=== PATIENT | male | born 1950 | race Caucasian/White ===

== ENCOUNTER → 2017-02-02 | Outpatient (CLI) | payer MEDICARE | END | disposition home or self-care (01) | LOC: GMAL 11:35 | PROVIDERS: ATTEND Family Medicine | DX: D51.3 Other dietary vitamin B12 deficiency anemia (principal); Z12.5 Encounter for screening for malignant neoplasm of prostate; E55.9 Vitamin D deficiency, unspecified | CPT/HCPCS: 82306; 82607; G0103 ==

== ENCOUNTER 2017-05-04 11:38 | Emergency (ER) | payer MEDICARE ==
[2017-05-04 11:50] VITALS: BP 131/83; TEMP 97.6; O2SAT 96
--- NOTE | 2017-05-04 11:56 | ED.PDOC ---
History of Present Illness - General Chief Complaint: Trauma Stated Complaint: fall Time Seen by Provider: 05/04/17 11:53 Source: patient Exam Limitations: no limitations - History of Present Illness Initial Comments: Patient presents with left hip pain for one hour. He stepped on a rock that slid and his left leg went backwards. He actually fell onto his right side but the pain is in the left hip joint. It mostly stops at rest but then get worse with movement, especially walking. Sharp in nature. No previous injuries to the area. No other complaints. Timing/Duration: 1 hour Severity: mild Improving Factors: rest Worsening Factors: movement Associated Symptoms: denies symptoms Allergies/Adverse Reactions: Allergies Mercury Allergy (Verified 05/04/17 11:50) Morphine Allergy (Verified 05/04/17 11:50) Home Medications: Ambulatory Orders Losartan Potassium & Hydrochlo [Losartan Potassium/Hydroc 100-25 mg] 0.5 tab PO DAILY 09/10/14 Citalopram Hydrobromide [Celexa] 10 mg PO BEDTIME #30 tab 09/11/14 Losartan Potassium & Hydrochlo [Hyzaar 100-25 mg] 1 tab PO DAILY #30 tab Metoprolol Succinate [Metoprolol Succinate ER] 50 mg PO DAILY #30 tab 09/11/14 Acetamin W/Cod #3 Tab [Tylenol #3 Tab] 1 ea PO Q6H PRN #12 tab 12/27/15 Cephalexin [Keflex] 500 mg PO BID #14 cap 12/27/15 Review of Systems - Review of Systems Constitutional: States: no symptoms reported EENTM: States: no symptoms reported Respiratory: States: no symptoms reported Cardiology: States: no symptoms reported Gastrointestinal/Abdominal: States: no symptoms reported Genitourinary: States: no symptoms reported Musculoskeletal: States: see HPI Skin: States: no symptoms reported Neurological: States: no symptoms reported Endocrine: States: no symptoms reported Hematologic/Lymphatic: States: no symptoms reported Past Medical History (General) - Patient Medical History Hx Seizures: No Hx Stroke: No Hx Dementia: No Hx Asthma: No Hx of COPD: No Hx Cardiac Disorders: No Hx Congestive Heart Failure: No Hx Pacemaker: No Hx Hypertension: Yes Hx Thyroid Disease: No Hx Diabetes: No Hx Gastroesophageal Reflux: Yes Hx Renal Disease: No Hx Cancer: No Hx of HIV: No Hx Hepatitis C: No Hx MRSA: No Surgical History: no surgical history - Vaccination History Hx Tetanus, Diphtheria Vaccination: No Hx Influenza Vaccination: No Hx Pneumococcal Vaccination: No - Social History Hx Tobacco Use: No Hx Chewing Tobacco Use: No Hx Alcohol Use: Yes - occasional Hx Substance Use: No Hx Substance Use Treatment: No Hx Depression: Yes Hx Physical Abuse: No Hx Emotional Abuse: No Hx Suspected Abuse: No - Activities of Daily Living Hospice Agency (if applicable):: None - Female History Patient : No Family Medical History - Family History Father Living Status: Still Living Hx Family Hypertension: Yes Hx Cardiac Disease: Yes - pacemaker Mother Living Status: Still Living Hx Family Hypertension: Yes Physical Exam - Physical Exam General Appearance: Alert Respiratory: lungs clear Cardiovascular/Chest: normal peripheral pulses, regular rate, rhythm Gastrointestinal/Abdominal: normal bowel sounds, non tender, soft Back Exam: normal inspection Extremity: other - Moderate pain with abduction of the left hip. Abduction of the right hip also elicits the left sided pain. Straight and cross leg raises are negative. Progress - Progress Progress: 05/04/17 12:56 Radiographs of the left hip were negative. Departure - Departure Clinical Impression: Sprain of left hip Disposition: Discharge to Home or Self Care Condition: Good Departure Forms: ED Discharge - Pt. Copy, Patient Portal Self Enrollment Diet: resume usual diet Activity: increase activity as tolerated Referrals: Percy Paulson III, MD [Primary Care Provider] - 1-2 Weeks Home Medications: Ambulatory Orders Losartan Potassium & Hydrochlo [Losartan Potassium/Hydroc 100-25 mg] 0.5 tab PO DAILY 09/10/14 Citalopram Hydrobromide [Celexa] 10 mg PO BEDTIME #30 tab 09/11/14 Losartan Potassium & Hydrochlo [Hyzaar 100-25 mg] 1 tab PO DAILY #30 tab Metoprolol Succinate [Metoprolol Succinate ER] 50 mg PO DAILY #30 tab 09/11/14 Acetamin W/Cod #3 Tab [Tylenol #3 Tab] 1 ea PO Q6H PRN #12 tab 12/27/15 Cephalexin [Keflex] 500 mg PO BID #14 cap 12/27/15 Additional Instructions: Ibuprofen and ice for pain control. Follow up with Dr. Navarro if pain has not resolved in two weeks.
--- NOTE | 2017-05-04 12:18 | RAD ---
EXAM DESCRIPTION: Hip,Left 2 Views CLINICAL HISTORY: Fall injury. Left hip pain FINDINGS/ IMPRESSION: No fracture of the proximal femur or pelvis Moderate osteoarthritis bilateral sacroiliac joints. Mild osteoarthritis of the hips Electronically signed by: Eric Blanco MD 05/04/2017 12:17 PM CDT
== END 2017-05-04 13:18 | disposition home or self-care (01) ==
LOC: ER 11:38
DX: S73.102A Unspecified sprain of left hip, initial encounter (principal); I10 Essential (primary) hypertension; Z88.6 Allergy status to analgesic agent; W01.0XXA Fall on same level from slipping, tripping and stumbling without subsequent striking against object, initial encounter; Y92.9 Unspecified place or not applicable

== ENCOUNTER 2017-05-18 15:09 | Emergency (ER) | payer MEDICARE ==
--- NOTE | 2017-05-18 15:15 | ED.PDOC ---
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 and fell forward on his hand and knees able to get up but had pain on his left hip which he had previously 2 weeks ago after a fall on his left hip.Able to get up but sharp pian got worse on his hip left and went home driving himself took vicodin and flexeril from previous prescription but pain unbearable having hard time getting up nad weight bearing left hip called up ems Occurred: this afternoon Severity: moderate Injuries/Pain Location: lower extremity - left hip Reason for Fall: tripped Loss of Consciousness: no loss of consciousness Improving Factors: rest Worsening Factors: movement Associated Symptoms (Fall): denies symptoms Allergies/Adverse Reactions: Allergies Mercury Allergy (Verified 05/04/17 11:50) Morphine Allergy (Verified 05/04/17 11:50) Home Medications: Ambulatory Orders Losartan Potassium & Hydrochlo [Losartan Potassium/Hydroc 100-25 mg] 0.5 tab PO DAILY 09/10/14 Citalopram Hydrobromide [Celexa] 10 mg PO BEDTIME #30 tab 09/11/14 Losartan Potassium & Hydrochlo [Hyzaar 100-25 mg] 1 tab PO DAILY #30 tab Metoprolol Succinate [Metoprolol Succinate ER] 50 mg PO DAILY #30 tab 09/11/14 Acetamin W/Cod #3 Tab [Tylenol #3 Tab] 1 ea PO Q6H PRN #12 tab 12/27/15 Cephalexin [Keflex] 500 mg PO BID #14 cap 12/27/15 Review of Systems - Review of Systems Constitutional: States: no symptoms reported Respiratory: States: no symptoms reported Cardiology: States: no symptoms reported Gastrointestinal/Abdominal: States: no symptoms reported Musculoskeletal: States: see HPI Neurological: States: no symptoms reported Past Medical History (General) - Patient Medical History Hx Seizures: No Hx Stroke: No Hx Dementia: No Hx Asthma: No Hx of COPD: No Hx Cardiac Disorders: No Hx Congestive Heart Failure: No Hx Pacemaker: No Hx Hypertension: Yes Hx Thyroid Disease: No Hx Diabetes: No Hx Gastroesophageal Reflux: Yes Hx Renal Disease: No Hx Cancer: No Hx of HIV: No Hx Hepatitis C: No Hx MRSA: No Surgical History: other - vasectomy - Vaccination History Hx Tetanus, Diphtheria Vaccination: No Hx Influenza Vaccination: No Hx Pneumococcal Vaccination: No - Social History Hx Tobacco Use: No Hx Chewing Tobacco Use: No Hx Alcohol Use: Yes - occasional Hx Substance Use: No Hx Substance Use Treatment: No Hx Depression: Yes Hx Physical Abuse: No Hx Emotional Abuse: No Hx Suspected Abuse: No - Activities of Daily Living Patient Lives Alone: No - family - Female History Patient : No Physical Exam - Physical Exam General Appearance: Alert, No apparent distress Head Injury: no evidence of injury Eye Exam: bilateral normal ENT Exam: hearing grossly normal, no evidence of ENT injury Peripheral Pulses: radial,right: 1+, radial,left: 1+, dorsalis pedis,right: 1+, dorsalis pedis,left: 1+ Cardiovascular/Respiratory: regular rate, rhythm, no M/R/G, normal peripheral pulses, normal breath sounds Gastrointestinal/Abdominal: non tender, soft, no organomegaly Back Exam: no CVA tenderness Extremity Exam: no pedal edema, pelvis stable, pain with movement - left hip, tenderness - left hip, unable to bear weight Neurologic: no motor/sensory deficits, alert, oriented x 3 Progress - Progress Progress: 05/18/17 15:39 Vital Signs - 8 hr 05/18/17 15:15 Temperature 98.5 F Pulse Rate [ 70 monitor] Respiratory 16 Rate Blood Pressure 148/101 [Right Arm] O2 Sat by Pulse 95 Oximetry - Results/Orders Results/Orders: Laboratory Tests 05/18/17 05/18/17 15:00 15:00 WBC 9.6 RBC 4.43 L Hgb 14.0 Hct 41.6 L MCV 94.0 MCH 31.6 H MCHC 33.7 RDW 13.2 Plt Count 216 MPV 7.9 Absolute Neuts (auto) 7.40 H Absolute Lymphs (auto) 1.30 Absolute Monos (auto) 0.80 Absolute Eos (auto) 0.10 Absolute Basos (auto) 0.00 Neutrophils % 77.0 Lymphocytes % 13.2 L Monocytes % 8.6 Eosinophils % 0.9 L Basophils % 0.3 Sodium 136 Potassium 4.0 Chloride 104 Carbon Dioxide 24 Anion Gap 12.0 BUN 21 H Creatinine 1.02 BUN/Creatinine Ratio 20.6 H Random Glucose 96 Serum Osmolality 274.8 L Calcium 8.8 Total Bilirubin 0.7 AST 26 ALT 29 Alkaline Phosphatase 36 L Serum Total Protein 6.3 L Albumin 4.1 Globulin 2.2 L Albumin/Globulin Ratio 1.9 - EKG/XRAY/CT XRAY: hip - left -degenerative changes no fracture CT Ordered: Yes - left hip-no fracture Departure - Departure Clinical Impression: Lipoma of buttock Fall Qualifiers: Encounter type: initial encounter Qualified Code(s): W19.XXXA - Unspecified fall, initial encounter Hip pain Qualifiers: Laterality: left Qualified Code(s): M25.552 - Pain in left hip Time of Disposition: 17:18 Disposition: Discharge to Home or Self Care Condition: Good Instructions: Help for Hip Pain Referrals: Percy Paulson III, MD [Primary Care Provider] - 1-2 Weeks Home Medications: Ambulatory Orders Losartan Potassium & Hydrochlo [Losartan Potassium/Hydroc 100-25 mg] 0.5 tab PO DAILY 09/10/14 Citalopram Hydrobromide [Celexa] 10 mg PO BEDTIME #30 tab 09/11/14 Losartan Potassium & Hydrochlo [Hyzaar 100-25 mg] 1 tab PO DAILY #30 tab Metoprolol Succinate [Metoprolol Succinate ER] 50 mg PO DAILY #30 tab 09/11/14 Acetamin W/Cod #3 Tab [Tylenol #3 Tab] 1 ea PO Q6H PRN #12 tab 12/27/15 Cephalexin [Keflex] 500 mg PO BID #14 cap 12/27/15 Additional Instructions: Ice pack to affected area 20 minutes 3 x a day during waking hours only until better; continue with your pain medication
[2017-05-18 15:21] VITALS: TEMP 98.5
--- NOTE | 2017-05-18 15:41 | RAD ---
EXAM DESCRIPTION: Hip,Left 2 Views CLINICAL HISTORY: pain/fall COMPARISON: May 04, 2017 TECHNIQUE: AP/frog leg lateral FINDINGS: No fracture of the hip or proximal femur is present. Mild osteophyte formation at the margin of the acetabular rim is present with mild sclerosis of the left SI joint and right SI joint consistent with osteoarthritis. IMPRESSION: No acute injury of the left hip with mild arthritic changes of the hip and SI joints. Electronically signed by: Eric Rivera MD 05/18/2017 3:40 PM CDT
--- NOTE | 2017-05-18 15:43 | RAD ---
EXAM DESCRIPTION: Pelvis,2 or More Views CLINICAL HISTORY: 66 years Male, pain/fall COMPARISON: December 29, 2012 FINDINGS: The bony pelvic ring is intact with mild degenerative changes involving the hips and SI joints. No destructive process or fracture or disruption of the pelvic bony ring seen. IMPRESSION: Negative examination. Electronically signed by: Eric Rivera MD 05/18/2017 3:41 PM CDT
[2017-05-18] MEDS ORDERED: fentaNYL CITRATE INJ 50 MCG/ML AMP IV ONE (16:46)
--- NOTE | 2017-05-18 17:08 | CT ---
EXAM DESCRIPTION: Lower Extremity CLINICAL HISTORY: 66 years Male pain left hip COMPARISON: None. TECHNIQUE: Contiguous axial CT images obtained through the left hip without IV contrast. Reformatted images obtained. This exam was performed according to our department optimization program which includes automated exposure control, adjustment of the mA and/or kv according to patient size and/or use of iterative reconstruction technique. FINDINGS: Mild osteophytosis along the left acetabulum. The proximal left femur appears intact. Enthesophytes are present along the inferior pubic ramus. No acute fracture is noted. Degenerative changes are present at the left SI joint. Incidental note made of diverticulosis. Lipoma in the gluteal muscles over the lateral aspect of the hip. IMPRESSION: No acute fracture Electronically signed by: Geeta Decker 05/18/2017 5:06 PM CDT
[2017-05-18 17:41] VITALS: BP 148/88; O2SAT 98
== END 2017-05-18 17:39 | disposition home or self-care (01) ==
LOC: ER 15:09
DX: D17.39 Benign lipomatous neoplasm of skin and subcutaneous tissue of other sites (principal); K21.9 Gastro-esophageal reflux disease without esophagitis; Z88.0 Allergy status to penicillin; Z88.8 Allergy status to other drugs, medicaments and biological substances; W01.0XXA Fall on same level from slipping, tripping and stumbling without subsequent striking against object, initial encounter; Y92.69 Other specified industrial and construction area as the place of occurrence of the external cause
CPT/HCPCS: 36415; 72190; 73502; 73700; 80053; 85025; J3010

== ENCOUNTER → 2017-08-31 | Outpatient (CLI) | payer MEDICARE ==
--- NOTE | 2017-08-31 12:58 | MRI ---
EXAM DESCRIPTION: MRI of the lumbar spine CLINICAL HISTORY: LUMBAR RADICULOPATHY COMPARISON: None. TECHNIQUE: Multiplanar multisequence magnetic resonance imaging of the lumbar spine was performed without contrast. FINDINGS: GENERAL Designated L5-S1 disc level seen on axial T2 series image 3 Lumbar lordosis is maintained. Conus medullaris is normal in thickness and signal intensity terminating at the L1 level. Bone marrow signal is within normal limits. No acute fracture is demonstrated. [id number] bilateral degenerative sacroiliitis is partially seen. Visualized retroperitoneal structures are unremarkable. Overall appearance of the spinal canal indicates a degree of congenital narrowing from foreshortened pedicles. Multilevel bridging syndesmophytes of the visualized lumbar spine can be seen with psoriatic arthritis or diffuse idiopathic spinal hyperostosis. L1-2 Usual degenerative disc height loss. No significant findings. L2-3 Mild degenerative disc signal. Circumferential bulging disc extending posteriorly less than 0.2 cm. AP diameter thecal sac measures 0.8 cm. This contributes to bilateral lateral recess effacement with contact and possible impingement traversing bilateral L3 nerve roots. No significant foraminal stenosis is demonstrated. L3-4 Circumferential bulging of the disc extends up to 0.4 cm into the central spinal canal. Ligamentum flavum buckling/redundancy is present. This narrows AP diameter thecal sac to 0.4 cm. The nerve roots are clumped and there is complete effacement of CSF signal. Nerve roots are ectatic distally to this area of high-grade stenosis. There is mild bilateral facet arthritis. No significant foraminal stenosis is seen. L4-5 Circumferential bulging of the disc is noted to extend up to 0.3 cm into the central spinal canal. Ligamentum flavum buckling/redundancy is present. There is mild to moderate bilateral facet joint osteoarthritis /hypertrophy. AP diameter thecal sac narrows to approximately 0.5 cm. There is effacement of the bilateral lateral recesses with possible impingement traversing bilateral L5 nerve roots. Mild effacement right neural foraminal fat from facet hypertrophy. L5-S1 Borderline mild bilateral facet arthritis. IMPRESSION: Severe central spinal canal stenosis L3-L4 from combination congenital narrowing, circumferential bulging disc, ligamentum flavum buckling and facet hypertrophy. Advanced central spinal canal narrowing L4-5 also multifactorial. Advanced bilateral lateral recess effacement multifactorial L2-L3 and L4-5. Additional less specific findings described above. Electronically signed by: Adan Keller MD 08/31/2017 12:57 PM [facility]
== END | disposition home or self-care (01) ==
LOC: MRI 09:54
PROVIDERS: ATTEND Family Medicine
DX: M54.16 Radiculopathy, lumbar region (principal)

== ENCOUNTER → 2018-05-19 | Outpatient (CLI) | payer MEDICARE | LOC: GMAL 15:02 | PROVIDERS: ATTEND Family Medicine | DX: Z12.5 Encounter for screening for malignant neoplasm of prostate (principal) ==

== ENCOUNTER 2018-11-14 05:41 | Day surgery (SDC) | payer MEDICARE ==
[2018-11-14] MEDS ORDERED: TROP 1%/CYCLOPEN 1%/PHENYL 2% DROPS OPHTH ONE (05:42)
[2018-11-14] MEDS ORDERED: MIDAZOLAM INJ 2 MG/2 ML VIAL ONE (06:58)
[2018-11-14] MEDS ORDERED: PROPARACAINE 0.5% OPHTH SOL 15 ML BTTL LEFT_EYE ONE (08:05)
[2018-11-14] MEDS ORDERED: DEXAMETHASONE 0.1% OPHTH SOL 1 DROP LEFT_EYE ONE ×2 (08:13→08:28)
[2018-11-14] MEDS ORDERED: BRIMONIDINE 0.2% OPHTH DROPS LEFT_EYE ONE ×2 (08:14→08:28)
[2018-11-14] MEDS ORDERED: TOBRAMYCIN SULF 0.3 % OPHT SOL 1 DROP LEFT_EYE ONE ×2 (08:14→08:28)
[2018-11-14] MEDS ORDERED: MOXIFLOXACIN HCL (OPHTH) 1 DROP DROPS LEFT_EYE ONE ×2 (08:16→08:26)
[2018-11-14] MEDS ORDERED: LIDOCAINE 1% 2 ML VIAL INJ ONE (08:16)
== END 2018-11-14 09:03 | disposition home or self-care (01) ==
LOC: AMB 05:41
PROVIDERS: ATTEND Ophthalmology
DX: H25.12 Age-related nuclear cataract, left eye (principal); I10 Essential (primary) hypertension; E66.9 Obesity, unspecified; Z88.5 Allergy status to narcotic agent; Z79.899 Other long term (current) drug therapy
CPT/HCPCS: 00142; 66984; J2250

== ENCOUNTER 2018-11-28 05:24 | Day surgery (SDC) | payer MEDICARE ==
[2018-11-28] MEDS ORDERED: PROPARACAINE 0.5% OPHTH SOL 15 ML BTTL ONE (05:43)
[2018-11-28] MEDS ORDERED: TROP 1%/CYCLOPEN 1%/PHENYL 2% DROPS ONE (05:43)
[2018-11-28] MEDS ORDERED: MOXIFLOXACIN HCL (OPHTH) 1 DROP DROPS ONE (05:43)
[2018-11-28] MEDS ORDERED: MIDAZOLAM INJ 2 MG/2 ML VIAL ONE (06:39)
[2018-11-28] MEDS ORDERED: fentaNYL CITRATE INJ 50 MCG/ML AMP ONE (06:40)
[2018-11-28] MEDS ORDERED: PROPARACAINE 0.5% OPHTH SOL 15 ML BTTL RIGHT_EYE ONE (07:40)
[2018-11-28] MEDS ORDERED: LIDOCAINE 1% 2 ML VIAL INJ ONE (07:50)
[2018-11-28] MEDS ORDERED: BRIMONIDINE 0.2% OPHTH DROPS RIGHT_EYE ONE (08:03)
[2018-11-28] MEDS ORDERED: DEXAMETHASONE 0.1% OPHTH SOL 1 DROP RIGHT_EYE ONE (08:03)
[2018-11-28] MEDS ORDERED: TOBRAMYCIN SULF 0.3 % OPHT SOL 1 DROP RIGHT_EYE ONE (08:03)
== END 2018-11-28 08:45 | disposition home or self-care (01) ==
LOC: AMB 05:24
PROVIDERS: ATTEND Ophthalmology
DX: H25.11 Age-related nuclear cataract, right eye (principal); I10 Essential (primary) hypertension; E66.9 Obesity, unspecified; Z88.5 Allergy status to narcotic agent; Z88.8 Allergy status to other drugs, medicaments and biological substances
CPT/HCPCS: 00142; 66984; J2250; J3010

== ENCOUNTER → 2019-07-18 | Outpatient (CLI) | payer MEDICARE ==
--- NOTE | 2019-07-18 08:59 | MRI ---
EXAM DESCRIPTION: Cervical Spine: MRI. CLINICAL HISTORY: 69 years Male CERVICAL RADICULOPATHY COMPARISON: CT scan cervical spine without contrast 27 December 2015. TECHNIQUE: Multiplanar, high-field MRI, multiple sequences, non-contrast Cervical spine. FINDINGS: The cord is enlarged at C4-C5 with central canal measuring 8.6 x 5.8 mm and entire cord measuring 1.5 x 0.8 cm. Anterior expansion is noted. C4-C5 disc desiccation with anterior and posterior bulging; posterior margin is abutting the enlarged cord. Small bilateral uncinate spurs larger on the right minimal hypertrophic right facet arthrosis. Bilateral mild to moderate neural foraminal narrowing. Moderate canal narrowing. C3-C4: Disc desiccation and minimal disc space loss. Tiny posterior midline bulge. Bilateral hypertrophic facet arthrosis greater left than right. No uncinate spurs. Mild bilateral foraminal narrowing and mild canal narrowing. Cord negative at this level. Mild to moderate disc space loss C5-C6: Mild to moderate disc space loss with disc desiccation, anterior bulging and endplate ridging. Endplate reactive changes with posterior superior endplate cyst. 4 mm grade 1 retrolisthesis. Posterior broad-based disc bulge in the midline and to the right of midline more than left with herniation 5 mm in the endplates impinging the right C6 nerve. Right paracentral canal stenosis. Right side disc osteophyte complex increases disc space narrowing with right uncinate spur, and borderline right neural foraminal stenosis. Smaller disc osteophyte complex on the left of the disc space with left uncinate spur causing left neural foraminal stenosis. C6-C7: Disc desiccation and moderate disc space loss with anterior disc bulging and endplate ridging. 2 mm grade 1 retrolisthesis. Posterior broad-based disc bulge but not abutting the cord, mild canal narrowing. Bilateral uncinate spurs minimal hypertrophic facet arthrosis and bilateral neural foraminal moderate stenosis. C7-T1: Disc desiccation with disc space maintained. Bilateral facet hypertrophic arthrosis with thickening of the ligaments. Mild canal narrowing and moderate bilateral neural foraminal narrowing. Similar findings at the T1-2 level, but with no disc bulging and mild bilateral neural foraminal narrowing. Normal signal in the C2-C3 disc with no bulging. Disc space preserved. Canal and neural foramina are patent. Facet joints are negative. Spinal alignment minimal lordosis C3-C5. Cord is unremarkable except as noted at the C4-C5 level. Atlantoaxial joint hypertrophic arthrosis with the posterior joint capsule abutting the anterior junction of the cord and brainstem.. Base of the cerebellar tonsils is above the foramen magnum. Paravertebral soft tissues with minimal lymph nodes. 1.5 x 1.0 cm nodular cyst lateral left thyroid lobe.. Vertebral bodies are not compressed at any level. Otherwise normal marrow signal in the remaining vertebral bodies and the posterior elements. IMPRESSION: 1. Central canal irregular enlargement enlarging the cord at C4-C5. No signs or history of trauma. C4-C5 disc is bulging posteriorly but not compressing. Consider inflammatory process or intramedullary cervical tumor such as ependymoma, astrocytoma, metastasis, vascular tumor, or lymphoma. Less likely Enlarged syrinx or posttraumatic. Recommend follow-up MRI with gadolinium IV contrast. 2. Right paracentral canal stenosis and bilateral neural foraminal stenosis, multifactorial, and C5-C6. More likely C6 nerve compromise bilaterally. 3. Multifactorial C6-C7 canal narrowing and bilateral neural foraminal stenosis which is moderate. Likely bilateral C7 nerve compromise. Electronically signed by: Abimael Nowak MD 07/18/2019 8:58 AM [facility]
== END ==
LOC: MRI 06:48
PROVIDERS: ATTEND Family Medicine
DX: M48.02 Spinal stenosis, cervical region (principal); M50.10 Cervical disc disorder with radiculopathy, unspecified cervical region

== ENCOUNTER → 2019-07-19 | Outpatient (CLI) | payer MEDICARE ==
--- NOTE | 2019-07-20 14:11 | MRI ---
EXAM DESCRIPTION: Cervical Spine w/Contrast CLINICAL HISTORY: RADICULOPATHY CERVICAL REGION COMPARISON: MRI cervical spine without contrast 18 July 2019. TECHNIQUE: Multiplanar MRI, multiple sequences, after gadolinium IV contrast. No adverse reactions. FINDINGS: The lesion in the central cord at the C4-C5 level enhances inhomogeneously with the periphery showing less enhancement, so that the enhancing tissue in the lesion, 7.3 x 4.2 mm is a smaller region than the actual precontrast lesion: 9.4 x 5.8 mm. Noncontrast lesion measures 10.1 mm in the longitudinal spine cord axis and the postcontrast lesion measures 5.4 mm. The lesion is again demonstrated to be abutting the ventral cord. No abnormal contrast enhancement in the extra medullary space or the extradural space. 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 Enhancement involving the decreased volume compared to the noncontrast lesion. Differential diagnosis remains the same as given previously for intradural intramedullary cervical cord lesion. No abnormal enhancement in the extradural space or adjacent soft tissues. Neurosurgical consult is recommended. Electronically signed by: Abimael Nowak MD 07/20/2019 2:09 PM [facility]
== END ==
LOC: LAB.O 10:47
PROVIDERS: ATTEND Family Medicine
DX: M54.12 Radiculopathy, cervical region (principal); G95.9 Disease of spinal cord, unspecified

== ENCOUNTER 2019-12-15 09:23 | Emergency (ER) | payer MEDICARE ==
--- NOTE | 2019-12-15 09:59 | RAD ---
EXAM DESCRIPTION: Chest,1 View CLINICAL HISTORY: dizziness COMPARISON: September 10, 2014 IMPRESSION: Single AP portable upright view of the chest shows mild enlargement of the cardiac silhouette without pulmonary vascular congestion similar to previous. Lungs are normally aerated and clear. No obvious pleural effusion or pneumothorax is seen. Electronically signed by: Shaw Gore MD 12/15/2019 9:57 AM CDT
[2019-12-15 10:03] VITALS: O2SAT 96
[2019-12-15] MEDS: SODIUM CHLORIDE 0.9% 1000ML 1,000 ML IVS ONE (10:24)
--- NOTE | 2019-12-15 11:34 | ED.PDOC ---
History of Present Illness - General Chief Complaint: General Stated Complaint: Fatigue Time Seen by Provider: 12/15/19 09:28 Source: patient Exam Limitations: no limitations - History of Present Illness Initial Comments: The patient is a 69-year-old male presented emergency room secondary to dizziness with walking around this morning. Systolic blood pressures were l ow ranging from 90-105. This is lower than his normal. 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 No fevers. No chest pain. No focal neurological changes. No true vertigo. He only gets dizzy with standing but feels better with lying back. No urinary symptoms. No evidence of any current infection. Surgical sites appear to be healing well. No abdominal or significant back pain. Timing/Duration: momentarily Severity: mild Improving Factors: nothing Worsening Factors: nothing Associated Symptoms: malaise Allergies/Adverse Reactions: Allergies Mercury Allergy (Verified 05/04/17 11:50) Morphine Allergy (Verified 05/04/17 11:50) Home Medications: Ambulatory Orders Losartan Potassium & Hydrochlo [Hyzaar 100-25 mg] 1 tab PO DAILY #30 tab 09/11/14 Docusate Sodium PO DAILY 12/15/19 Gabapentin PO BID 12/15/19 Ibuprofen [Ibuprofen 200] PO Q8HRS 12/15/19 Metoprolol Succinate [Metoprolol Succinate ER] 100 mg PO BID 12/15/19 Naproxen Sodium [Aleve] 220 mg PO 12/15/19 Trazodone HCl [Trazodone Hydrochloride] PO 12/15/19 Verapamil HCl [Verapamil HCl Sr] PO DAILY 12/15/19 Review of Systems - Review of Systems Constitutional: States: malaise EENTM: States: no symptoms reported Respiratory: States: no symptoms reported Cardiology: States: no symptoms reported Gastrointestinal/Abdominal: States: no symptoms reported Genitourinary: States: no symptoms reported Musculoskeletal: States: no symptoms reported Skin: States: no symptoms reported Neurological: States: see HPI Endocrine: States: no symptoms reported All other Systems: No Change from Baseline Past Medical History (General) - Patient Medical History Hx Seizures: No Hx Stroke: No Hx Dementia: No Hx Asthma: No Hx of COPD: No Hx Cardiac Disorders: No Hx Congestive Heart Failure: No Hx Pacemaker: No Hx Hypertension: No Hx Thyroid Disease: No Hx Diabetes: No Hx Gastroesophageal Reflux: Yes Hx Renal Disease: No Hx Cancer: No Hx of HIV: No Hx Hepatitis C: No Hx MRSA: No - Vaccination History Hx Tetanus, Diphtheria Vaccination: No Hx Influenza Vaccination: No Hx Pneumococcal Vaccination: No - Social History Hx Tobacco Use: Yes Hx Chewing Tobacco Use: No Hx Alcohol Use: Yes Hx Substance Use: No Hx Substance Use Treatment: No Hx Depression: Yes Hx Physical Abuse: No Hx Emotional Abuse: No Hx Suspected Abuse: No - Female History Patient : No - Triage Comment ED Triage Comment: Patient reports generalized weakness made worse when standing. Patient reports fainting episodes. Family Medical History - Family History Father Living Status: Still Living Hx Family Hypertension: Yes Hx Cardiac Disease: Yes - pacemaker Mother Living Status: Still Living Hx Family Hypertension: Yes Physical Exam - Physical Exam General Appearance: Alert, Comfortable, No apparent distress Eye Exam: bilateral normal Ears, Nose, Throat: hearing grossly normal, normal ENT inspection Neck: full range of motion, supple Respiratory: chest non-tender, lungs clear, normal breath sounds, no respiratory distress, no accessory muscle use Cardiovascular/Chest: normal peripheral pulses, regular rate, rhythm, no edema Peripheral Pulses: radial,right: 2+, radial,left: 2+ Gastrointestinal/Abdominal: non tender - Surgical sites appear to be healing well., soft Rectal Exam: deferred Back Exam: no CVA tenderness, no vertebral tenderness Extremity: normal range of motion, non-tender, normal inspection, no pedal edema, normal capillary refill 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 The patient is relatively hypotensive and mildly dry. He received a liter of IV fluids and does appear to be doing better. He has been monitored on telemetry monitoring with no significant arrhythmia noted. Laboratory work and EKG are otherwise reassuring. The patient is going to hold his hydrochlorothiazide until instructed to do otherwise. He should also hold his losartan for the next 3 or 4 days. He does need to write down his blood pressures over that time and contact his primary care doctor early next week for further instruction. ER warnings are given for any worsening. 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 bird [email or web address] [id number] - Results/Orders Results/Orders: Laboratory Tests 12/15/19 12/15/19 12/15/19 09:40 09:40 09:40 WBC 8.4 RBC 4.06 L Hgb 12.3 L Hct 36.4 L MCV 89.7 MCH 30.3 MCHC 33.8 RDW 13.9 Plt Count 325 MPV 7.2 L Absolute Neuts (auto) 6.80 Absolute Lymphs (auto) 0.80 L Absolute Monos (auto) 0.60 Absolute Eos (auto) 0.10 Absolute Basos (auto) 0.00 Neutrophils % 81.5 H Lymphocytes % 9.4 L Monocytes % 7.3 Eosinophils % 1.4 Basophils % 0.4 Sodium 135 Potassium 4.6 Chloride 103 Carbon Dioxide 22 Anion Gap 14.6 BUN 27 H Creatinine 1.16 BUN/Creatinine Ratio 23.3 H Random Glucose 152 H Serum Osmolality 278.2 Lactic Acid 2.5 H* Calcium 8.9 Magnesium 2.4 Total Bilirubin 0.6 AST 29 ALT 24 Alkaline Phosphatase 56 Creatine Kinase 77 CK-MB (CK-2) 2.6 CK-MB (CK-2) % Not Reportable Troponin I < 0.02 B-Natriuretic Peptide 48.0 Serum Total Protein 6.8 Albumin 4.2 Globulin 2.6 Albumin/Globulin Ratio 1.6 Amylase 65 Lipase 31 Urine Color Urine Appearance Urine pH Ur Specific [place] Urine Protein Urine Glucose (UA) Urine Ketones Urine Blood Urine Nitrite Urine Bilirubin Urine Urobilinogen Ur Leukocyte Esterase Urine RBC Urine WBC Ur Epithelial Cells Urine Bacteria 12/15/19 10:30 WBC RBC Hgb Hct MCV MCH MCHC RDW Plt Count MPV Absolute Neuts (auto) Absolute Lymphs (auto) Absolute Monos (auto) Absolute Eos (auto) Absolute Basos (auto) Neutrophils % Lymphocytes % Monocytes % Eosinophils % Basophils % Sodium Potassium Chloride Carbon Dioxide Anion Gap BUN Creatinine BUN/Creatinine Ratio Random Glucose Serum Osmolality Lactic Acid Calcium Magnesium Total Bilirubin AST ALT Alkaline Phosphatase Creatine Kinase CK-MB (CK-2) CK-MB (CK-2) % Troponin I B-Natriuretic Peptide Serum Total Protein Albumin Globulin Albumin/Globulin Ratio Amylase Lipase Urine Color Yellow Urine Appearance Clear Urine pH 5.0 Ur Specific [place] 1.020 Urine Protein 30 Urine Glucose (UA) Negative Urine Ketones Trace Urine Blood Negative Urine Nitrite Negative Urine Bilirubin Small H Urine Urobilinogen 0.2 Ur Leukocyte Esterase Negative Urine RBC 0 Urine WBC 0 Ur Epithelial Cells 0 Urine Bacteria 0 EKG shows sinus bradycardia 53 bpm. First-degree AV block. Right bundle branch block. Nonspecific T wave changes. Normal QT interval. Otherwise normal R wave progression. Normal axis. EKG is consistent with previous EKGs. Chest x-ray shows mild cardiomegaly. Departure - Departure Clinical Impression: Orthostasis, Dehydration Disposition: Discharge to Home or Self Care Condition: Fair Departure Forms: ED Discharge - Pt. Copy, Patient Portal Self Enrollment Instructions: Orthostatic Hypotension Diet: regular diet Activity: increase activity as tolerated Referrals: Percy Paulson III, MD [Primary Care Provider] - 1-2 Weeks Home Medications: Ambulatory Orders Losartan Potassium & Hydrochlo [Hyzaar 100-25 mg] 1 tab PO DAILY #30 tab 09/11/14 Docusate Sodium PO DAILY 12/15/19 Gabapentin PO BID 12/15/19 Ibuprofen [Ibuprofen 200] PO Q8HRS 12/15/19 Metoprolol Succinate [Metoprolol Succinate ER] 100 mg PO BID 12/15/19 Naproxen Sodium [Aleve] 220 mg PO 12/15/19 Trazodone HCl [Trazodone Hydrochloride] PO 12/15/19 Verapamil HCl [Verapamil HCl Sr] PO DAILY 12/15/19 Additional Instructions: The patient is a 69-year-old male presenting to the emergency room secondary to a feeling of dizziness with getting up and walking around. The patient is relatively hypotensive and mildly dry. He received a liter of IV fluids and does appear to be doing better. He has been monitored on telemetry monitoring with no significant arrhythmia noted. Laboratory work and EKG are otherwise reassuring. The patient is going to hold his hydrochlorothiazide until instructed to do otherwise. He should also hold his losartan for the next 3 or 4 days. He does need to write down his blood pressures over that time and contact his primary care doctor early next week for further instruction. ER warnings are given for any worsening. 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
[2019-12-15 12:22] VITALS: BP 110/75; TEMP 97
== END 2019-12-15 12:10 | disposition home or self-care (01) ==
LOC: ER 09:23
DX: I95.1 Orthostatic hypotension (principal); E86.0 Dehydration; I45.10 Unspecified right bundle-branch block; I44.0 Atrioventricular block, first degree; F17.200 Nicotine dependence, unspecified, uncomplicated
CPT/HCPCS: 36415; 71045; 80053; 81001; 82150; 82550; 82553; 83605; 83690; 83735; 83880; 84484; 85025; 93005; J7030